=== PATIENT | female | born 1970 ===

== ENCOUNTER 2017-03-26 14:38 | Emergency (ER) | payer SELFPAY ==
[2017-03-26 14:47] VITALS: BP 124/80; PULSE 73; RESP 16; TEMP 97; O2SAT 99
[2017-03-26] MEDS ORDERED: Sodium Chloride 0.9% 1,000 ML IV STA (15:31)
[2017-03-26 15:52] LABS: BASO # 0.1 K/uL (0.0-0.2); BASO % 0.6 % (0.0-2.0); EOS # 0.1 K/uL (0.0-0.7); EOS % 0.9 % (0.0-4.0); HEMATOCRIT 39.3 % (34.0-47.0); LYMPH # 1.7 K/uL (1.0-4.3); LYMPH % 19.8 % (20.0-40.0); MEAN CELL VOLUME 84.3 fl (81.0-99.0); MEAN CORPUSCULAR HEMOGLOBIN 27.9 pg (27.0-31.0); MEAN PLATELET VOLUME 7.3 fl (7.2-11.7); MONO # 0.4 K/uL (0.0-0.8); MONO % 5.1 % (0.0-10.0); NEUT # 6.3 K/uL (1.8-7.0); NEUT % 73.6 % (50.0-75.0); NRBC % 0.1 % (0.0-0.0); RED CELL DISTRIBUTION WIDTH 13.9 % (11.5-14.5); WHITE BLOOD COUNT 8.5 K/uL (4.8-10.8)
[2017-03-26 16:07] LABS: ALB/GLOB RATIO 1.5 (1.0-2.1); ALKALINE PHOSPHATASE 85 U/L (38-126); ALT/SGPT 41 U/L (9-52); AST/SGOT 35 U/L (14-36); BILIRUBIN,TOTAL 0.7 mg/dl (0.2-1.3); BLOOD UREA NITROGEN 11 mg/dl (7-17); CALCIUM 9.4 mg/dL (8.4-10.2); CARBON DIOXIDE 26 mmol/L (22-30); CHLORIDE 104 mmol/L (98-107); GFR AFRICAN-AMERICAN > 60; GLUCOSE,RANDOM 96 mg/dL (65-105); LIPASE 57 U/L (23-300); POTASSIUM 3.7 MMOL/L (3.6-5.0); SODIUM 141 mmol/l (132-148); TOTAL PROTEIN 7.4 G/DL (6.3-8.2)
--- NOTE | 2017-03-26 16:28 | ED PDOC ---
HPI: Abdomen Time Seen by Provider: 03/26/17 15:00 Chief Complaint (Nursing): Abdominal Pain Chief Complaint (Provider): Abdominal Pain History Per: Patient History/Exam Limitations: no limitations Current Symptoms Are (Timing): Still Present Additional Complaint(s): Neyda Davis is a 46 year old female with previous medical history of gastritis and vertigo, who presents to the emergency department with a complaint of epigastric pain associated with nausea ongoing for 3 days. Denied any fever, chills, vomiting or diarrhea. Patient currently takes Omeprazole for gastritis. PMD: none provided Past Medical History Reviewed: Historical Data, Nursing Documentation, Vital Signs Vital Signs: Last Vital Signs Temp 97 F L 03/26/17 14:44 Pulse 73 03/26/17 14:44 Resp 16 03/26/17 14:44 BP 124/80 03/26/17 14:44 Pulse Ox 99 03/26/17 17:19 - Medical History PMH: Gastritis Denies: Chronic Kidney Disease Other PMH: vertigo - Surgical History Surgical History: Tonsillectomy Other surgeries: tubal ligation - Family History Family History: States: Unknown Family Hx - Social History Current smoker - smoking cessation education provided: No Alcohol: None Drugs: Denies - Home Medications Home Medications: Ambulatory Orders Medication Instructions Recorded Guaifenesin [Mucinex] 1,200 mg PO ONCE #14 ter 08/29/15 Famotidine [Pepcid] 20 mg PO BID PRN #10 tab 03/26/17 - Allergies Allergies/Adverse Reactions: Allergies Allergy/AdvReac Type Severity Reaction Status Date / Time No Known Allergies Allergy Unverified 07/29/13 14:11 Review of Systems ROS Statement: Except As Marked, All Systems Reviewed And Found Negative Constitutional: Negative for: Fever, Chills Gastrointestinal: Positive for: Nausea, Abdominal Pain (epigastric). Negative for: Vomiting, Diarrhea Physical Exam - Reviewed Nursing Documentation Reviewed: Yes Vital Signs Reviewed: Yes - Physical Exam Appears: Positive for: Well, Non-toxic, No Acute Distress Head Exam: Positive for: ATRAUMATIC, NORMAL INSPECTION, NORMOCEPHALIC Skin: Positive for: Normal Color, Warm, Dry Cardiovascular/Chest: Positive for: Regular Rate, Rhythm. Negative for: Chest Non Tender Respiratory: Positive for: Normal Breath Sounds. Negative for: Respiratory Distress Gastrointestinal/Abdominal: Positive for: Normal Exam, Bowel Sounds, Soft. 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 - Laboratory Results Result Diagrams: 03/26/17 15:40 03/26/17 15:40 - ECG O2 Sat by Pulse Oximetry: 99 (RA) Pulse Ox Interpretation: Normal Medical Decision Making Medical Decision Making: Initial Impression: Epigastric pain R/O gastritis Initial Plan: * Pepcid 20mg IVP * NS 1,000ml IV per 150mls/hr * Urine C&S * Urinalysis * * on reeval, pt feels better * labs normal lipase normal lfts normal * pt instructed to follow up with her Gi doc for further evaluation and treament * reexamination of abdomen shows no tenderness * Scribe Attestation: Documented by Valerie Delgado, acting as a scribe for Nallely Titus MD. Provider Scribe Attestation: All medical record entries made by the Scribe were at my direction and personally dictated by me. I have reviewed the chart and agree that the record accurately reflects my personal performance of the history, physical exam, medical decision making, and the department course for this patient. I have also personally directed, reviewed, and agree with the discharge instructions and disposition. Disposition - Clinical Impression Clinical Impression: Gastritis - Patient ED Disposition Is Patient to be Admitted: No Doctor Will See Patient In The: Office Counseled Patient/Family Regarding: Diagnosis, Need For Followup, Rx Given - Disposition Referrals: [facility] [Outside] [facility] [Outside] Disposition: Routine/Home Disposition Time: 17:00 Condition: IMPROVED Additional Instructions: follow up with your GI specialist at [facility] in 2 days return to the ED with any worsening or concerning symptoms Prescriptions: Famotidine [Pepcid] 20 mg PO BID PRN #10 tab PRN Reason: Heartburn Instructions: Peptic Ulcer (ED) Forms: [facility] (Sami) Print Language: GEORGIAN
[2017-03-26 16:51] LABS: RBC URINE 2 /hpf (0-3); URINE BACTERIA RARE (<OCC); URINE BILIRUBIN NEGATIVE (NEGATIVE); URINE BLOOD NEGATIVE (NEGATIVE); URINE COLOR YELLOW (YELLOW); URINE GLUCOSE (UA) NEG (Normal); URINE KETONE NEGATIVE (NEGATIVE); URINE LEUKOCYTE ESTERASE NEG Leu/uL (Negative); URINE PROTEIN NEGATIVE (NEGATIVE); URINE UROBILINOGEN 0.2-1.0 mg/dL (0.2-1.0); WBC URINE 3 /hpf (0-5)
== END 2017-03-26 17:26 | disposition home or self-care (01) ==
LOC: H.ER 14:38
DX: K29.70 Gastritis, unspecified, without bleeding (principal); R11.0 Nausea
CPT/HCPCS: 80053; 81003; 83690; 85025; 87086; 96374; 99282; J7040

== ENCOUNTER 2018-05-24 17:41 | Emergency (ER) | payer MEDICAID ==
[2018-05-24 17:51] VITALS: RESP 18; TEMP 97.8
[2018-05-24] MEDS ORDERED: Sodium Chloride 0.9% 1,000 ML IV STA (18:20)
--- NOTE | 2018-05-24 18:27 | ED PDOC ---
HPI:Nausea, Vomiting, Diarrhea Time Seen by Provider: 05/24/18 18:03 Chief Complaint (Nursing): Abdominal Pain Chief Complaint (Provider): Nausea/Vomiting/Diarrhea History Per: Patient History/Exam Limitations: no limitations Onset/Duration Of Symptoms: Days (2x) Current Symptoms Are (Timing): Still Present Severity: Moderate Associated Symptoms: Nausea, Vomiting, Diarrhea, Other (dizziness, headache. (-) abdominal pain, (-) shortness of breath, (-) neck pain.). denies: Back Pain, Chest Pain, Constipation, Urinary Symptoms (incontinence, frequency, dysuria) Additional Complaint(s): 47 year old female with a past medical history of vertigo (previously treated with meclizine) presents to the ED with complaints of nausea, vomiting, and diarrhea (non-bloody) that started yesterday. Patient states she was able to tolerate food yesterday (soup), but was unable to today. Patient reports taking tramadol today for chronic back pain (patient denies numbness, tingling, incontinence, constipation) but her symptoms (nausea, vomiting, diarrhea) worsened afterward, and she started having headaches (mild, not worst in life). Patient also reports having dizziness (room spinning). Patient denies having acute back pain, abdominal pain, chest pain, shortness of breath, neck pain, dysuria, frequency and having a history of headaches. Patient states she has been seen in the ED previously for gastrointestinal complaints, and usually is treated with a pepcid injection in her stomach. PMD: Dane Pruett MD Past Medical History Reviewed: Historical Data, Nursing Documentation, Vital Signs Vital Signs: Last Vital Signs Temp 97.8 F 05/24/18 17:47 Pulse 71 05/24/18 17:47 Resp 18 05/24/18 17:47 BP 133/86 05/24/18 17:47 Pulse Ox 100 05/24/18 17:47 - Medical History PMH: Gastritis Denies: Chronic Kidney Disease - Surgical History Surgical History: Tonsillectomy Other surgeries: eye surgery - Family History Family History: States: No Known Family Hx - Social History Alcohol: None Drugs: Denies - Home Medications Home Medications: Ambulatory Orders Medication Instructions Recorded Guaifenesin [Mucinex] 1,200 mg PO ONCE #14 ter 08/29/15 Famotidine [Pepcid] 20 mg PO BID PRN #10 tab 03/26/17 Famotidine [Pepcid] 20 mg PO DAILY PRN #6 tab 05/24/18 Meclizine [Meclizine*] 25 mg PO Q12 PRN #10 tab 05/24/18 - Allergies Allergies/Adverse Reactions: Allergies Allergy/AdvReac Type Severity Reaction Status Date / Time No Known Allergies Allergy Unverified 07/29/13 14:11 Review of Systems ROS Statement: Except As Marked, All Systems Reviewed And Found Negative Cardiovascular: Negative for: Chest Pain Respiratory: Negative for: Shortness of Breath Gastrointestinal: Positive for: Nausea, Vomiting (non bloody), Diarrhea (non bloody). Negative for: Abdominal Pain Genitourinary Female: Negative for: Dysuria, Frequency, Incontinence Musculoskeletal: Positive for: Back Pain. Negative for: Neck Pain Neurological: Positive for: Headache (mild, not worst in life), Dizziness (room spinning). Negative for: Numbness ((-) tingling) Physical Exam - Reviewed Nursing Documentation Reviewed: Yes Vital Signs Reviewed: Yes - Physical Exam Appears: Positive for: Well, Non-toxic, No Acute Distress Head Exam: Positive for: ATRAUMATIC, NORMOCEPHALIC Skin: Positive for: Normal Color Eye Exam: Positive for: Normal appearance, EOMI, PERRL ENT: Positive for: Normal ENT Inspection Neck: Positive for: Normal Cardiovascular/Chest: Positive for: Regular Rate, Rhythm Respiratory: Positive for: Normal Breath Sounds Gastrointestinal/Abdominal: Positive for: Normal Exam, Soft. Negative for: Tenderness, Mass, Guarding, Rebound Back: Positive for: Normal Inspection. 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 Negative for: Motor/Sensory Deficits, Aphasia, Facial Droop - Laboratory Results Result Diagrams: 05/24/18 18:29 05/24/18 18:29 Interpretation Of Abn Labs: no acute Urine dip results: Positive for: Leukocyte Esterase - ECG O2 Sat by Pulse Oximetry: 100 (RA) Pulse Ox Interpretation: Normal - Progress ED Course And Treament: 2124: Stable. AAOx3. Pain free. Tolerated PO. Fu with pcp. Medical Decision Making Medical Decision Makin:03 Initial impression: 47 year old female with nausea, vomiting, diarrhea. Initial plan: * CMP * lipase * upreg * udip * meclizine 25 mg PO once * IV NS 1,000 ml IV 1,000 mls/hr * pepcid 20 mg IVP * zofran inj 4 mg IV * reevaluation Scribe Attestation: Documented byJuana Jenkins, acting as a scribe for Mayo Martinez MD. Provider Scribe Attestation: All medical record entries made by the Scribe were at my direction and personally dictated by me. I have reviewed the chart and agree that the record accurately reflects my personal performance of the history, physical exam, medical decision making, and the department course for this patient. I have also personally directed, reviewed, and agree with the discharge instructions and disposition. Disposition - Clinical Impression Clinical Impression: UTI (urinary tract infection), Vertigo - Disposition Referrals: [facility] [Outside] - 05/26/18 Disposition: Routine/Home Disposition Time: 21:25 Condition: STABLE Additional Instructions: Return if not better in 3 days. Prescriptions: Famotidine [Pepcid] 20 mg PO DAILY PRN #6 tab PRN Reason: Pain Meclizine [Meclizine*] 25 mg PO Q12 PRN #10 tab PRN Reason: Dizziness Instructions: Urinary Tract Infections in Adults, Vertigo (a Type of Dizziness) Forms: [facility] ED School/Work Excuse Print Language: GUAMANIAN
[2018-05-24 18:37] LABS: BASO % 0.5 % (0.0-2.0); EOS % 0.4 % (0.0-4.0); HEMOGLOBIN 12.4 g/dL (12.0-16.0); LYMPH % 15.5 % (20.0-40.0); MEAN CORPUSCULAR HEMOGLOBIN 27.3 pg (27.0-31.0); MEAN CORPUSCULAR HGB CONC 33.3 g/dL (33.0-37.0); MEAN PLATELET VOLUME 7.2 fl (7.2-11.7); MONO # 0.2 K/uL (0.0-0.8); MONO % 3.3 % (0.0-10.0); NEUT # 5.4 K/uL (1.8-7.0); NEUT % 80.3 % (50.0-75.0); NRBC % 0.1 % (0.0-0.0); RBC 4.56 Mil/uL (3.80-5.20); RED CELL DISTRIBUTION WIDTH 13.5 % (11.5-14.5); WHITE BLOOD COUNT 6.8 K/uL (4.8-10.8)
[2018-05-24 18:43] LABS: BLOOD UREA NITROGEN 18 mg/dl (7-17); GFR NON-AFRICAN AMERICAN > 60
[2018-05-24 18:44] LABS: ALB/GLOB RATIO 1.5 (1.0-2.1); ALBUMIN 4.2 g/dL (3.5-5.0); ALT/SGPT 30 U/L (9-52); AST/SGOT 21 U/L (14-36); CALCIUM 8.9 mg/dL (8.4-10.2); LIPASE 35 U/L (23-300)
[2018-05-24 21:44] VITALS: BP 129/76; PULSE 78; O2SAT 99
== END 2018-05-24 21:42 | disposition home or self-care (01) ==
LOC: H.ER 17:41
DX: N39.0 Urinary tract infection, site not specified (principal); R42 Dizziness and giddiness
CPT/HCPCS: 80053; 81025; 83690; 85025; 96361; 96374; 96375; 99284; J2405; J7030